=== PATIENT | male | born 1965 | race Caucasian/White ===

== ENCOUNTER 2019-04-09 06:48 | Day surgery (SDC) | payer BC ==
[~2019-04-09] VITALS: Ht 198.1 cm; Wt 101.5 kg
[~2019-04-09 06:48] MED LIST: ALBU.083IS IH; OXYACE5T PO; Percocet 10-321 EACH PO; TIZA4 PO; ZOLP10 PO
[2019-04-09] MEDS ORDERED: ZOLP5 PO (07:03)
[2019-04-09] MEDS ORDERED: FISH OIL 1,001000 MG (07:04)
[2019-04-09] MEDS ORDERED: CENTRUM SILVER1 EAC2 (07:04)
--- NOTE | 2019-04-09 08:18 | NUR ---
04/09/19 0818 Denise Blevins SIMETHICONE USED DURING PROCEDURE.
== END 2019-04-09 09:10 | disposition home or self-care (01) ==
LOC: ORSCSDS 06:48
PROVIDERS: Surgery
PROC: 0DBL8ZX Excision of Transverse Colon, Via Natural or Artificial Opening Endoscopic, Diagnostic (ICD-10-PCS; principal; 2019-04-09 08:00)
PROC: 0DBP8ZX Excision of Rectum, Via Natural or Artificial Opening Endoscopic, Diagnostic (ICD-10-PCS; principal; 2019-04-09 08:00)
DX: Z12.11 Encounter for screening for malignant neoplasm of colon (principal); Z86.010 Personal history of colon polyps; D12.3 Benign neoplasm of transverse colon; K62.1 Rectal polyp; Z79.899 Other long term (current) drug therapy
CPT/HCPCS: 88305; J0330; J0461; J2405; J2704; J7120